=== PATIENT | male | born 1940 | race Caucasian/White ===

== ENCOUNTER 2024-02-26 04:44 | Emergency (ER) | payer MEDICARE ==
[2024-02-26 04:51] LABS: BASOPHILS ABSOLUTE AUTO 0.06 K/uL (0.00-0.10); BASOPHILS PERCENT AUTO 0.4 % (0.1-1.3); EOSINOPHILS ABSOLUTE AUTO 0.07 K/uL (0.00-0.40); EOSINOPHILS PERCENT AUTO 0.4 % (0.0-5.4); HEMATOCRIT 41.9 % (38.4-49.7); HEMOGLOBIN 14.7 g/dL (12.9-16.9); IMMATURE GRAN ABSOLUTE AUTO 0.04 K/uL (0.00-0.23); IMMATURE GRAN PERCENT AUTO 0.2 % (0.0-0.7); LYMPHOCYTES ABSOLUTE AUTO 1.37 K/uL (0.8-3.3); LYMPHOCYTES PERCENT AUTO 8.4 % (11.4-47.7); MEAN CORPUSCULAR HEMOGLOBIN 33.4 pg (31.6-35.5); MEAN CORPUSCULAR HGB CONC 35.1 g/dL (31.6-35.5); MEAN CORPUSCULAR VOLUME 95.2 fL (81.4-99.0); MONOCYTES ABSOLUTE AUTO 1.12 K/uL (0.20-0.90); MONOCYTES PERCENT AUTO 6.9 % (3.3-12.6); NEUTROPHILS ABSOLUTE AUTO 13.67 K/uL (1.0-7.6); NEUTROPHILS PERCENT AUTO 83.7 % (40.0-78.1); PLATELET COUNT,PLT 251 K/uL (130-375); WHITE BLOOD CELL COUNT,WBC 16.3 K/uL (3.2-11.0)
[2024-02-26 05:07] LABS: BLOOD UREA NITROGEN,BUN 20 mg/dL (7-18); CALCIUM 9.4 mg/dL (8.5-10.1); CARBON DIOXIDE,CO2 20 mmol/L (21-32); CHLORIDE,CL 103 mmol/L (100-108); CREATININE 1.2 mg/dL (0.8-1.3); EST CRCL DRUG DOSING (CG) 44.33 mL/min; ESTIMATED GFR 60 mL/min (>60); GLUCOSE RANDOM 191 mg/dL (74-106); SODIUM,NA 138 mmol/L (140-148); TROPONIN I HIGH SENSITIVITY < 4.0 pg/mL (<=60.3)
[2024-02-26] MEDS: Alum Hydrox/Mag Hydrox/Simeth 15 ML, Lidocaine 2% 15 ML PO ONE (05:09)
[2024-02-26] MEDS ORDERED: Naloxone 0.4 MG/ML SDV IVPUSH PRN ×2 (05:19→07:52)
[2024-02-26] MEDS: Morphine 4 MG/ML Syringe IVPUSH ONE (05:22)
[2024-02-26] MEDS: Sodium Chloride 0.9% 10 ML Syringe FLUSH ONE (05:31)
[2024-02-26] MEDS: Ondansetron 4 MG/2 ML SDV IVPUSH ONE (05:31)
[2024-02-26 05:41] LABS: A/G RATIO 0.7 (1.2-2.2); ALBUMIN 3.4 g/dL (3.4-5.0); BILIRUBIN DIRECT 1.23 mg/dL (0.0-0.2); BILIRUBIN INDIRECT 0.47; BILIRUBIN TOTAL 1.7 mg/dL (0.2-1.0); PROTEIN TOTAL,TP 8.1 g/dL (6.4-8.2)
[2024-02-26] MEDS: Sodium Chloride 0.9% 1,000 ML IV SCH ×3 (05:55→08:03)
[2024-02-26] MEDS: Sodium Chloride 0.9% 80 ML IV SCH (06:13)
[2024-02-26] MEDS: Iopamidol 612 MG/ML 100 ML Bottle IV SCH (06:13)
[2024-02-26] MEDS: Prochlorperazine 10 MG/2 ML SDV IVPUSH ONE (06:19)
[2024-02-26] MEDS: Pantoprazole 40 MG Vial IVPUSH ONE (06:19)
[2024-02-26] MEDS: HYDROmorphone 0.5 MG/0.5 ML Syringe IVPUSH ONE ×2 (07:13→08:00)
[2024-02-26] MEDS: Piperacillin/Tazobactam 4.5 GM in Sodium Chloride 0.9% 100 ML IV ONE (07:48)
[2024-02-26 09:51] VITALS: BP 159/70; PULSE 108
== END 2024-02-26 10:37 | disposition other institution (70) ==
LOC: JP.ED 04:44
DX: K85.90 Acute pancreatitis without necrosis or infection, unspecified (principal); K81.9 Cholecystitis, unspecified; I10 Essential (primary) hypertension; Z90.49 Acquired absence of other specified parts of digestive tract; Z88.8 Allergy status to other drugs, medicaments and biological substances; Z79.899 Other long term (current) drug therapy
CPT/HCPCS: 36415; 71275; 74177; 80048; 80076; 83605; 83690; 83880; 84484; 85025; 85379; 86140; 93005; 93010; 96361; 96365; 96375; 96376; 99285; A9270; C9113; J0780; J1170; J2270; J2405; J2543; J3490; J7030; Q9967

== ENCOUNTER 2024-03-28 16:54 | Emergency (ER) | payer MEDICARE ==
[2024-03-28] MEDS: Piperacillin/Tazobactam 2.25 GM in Sodium Chloride 0.9% 50 ML IV ONE (19:10)
[2024-03-28] MEDS: Sodium Chloride 0.9% 1,000 ML IV SCH (19:12)
[2024-03-28] MEDS: Acetaminophen 325 MG Tab PO ONE (20:31)
[2024-03-28 20:50] VITALS: BP 139/74; PULSE 137
== END 2024-03-28 22:38 | disposition other institution (70) ==
LOC: JP.ED 16:54
DX: K85.90 Acute pancreatitis without necrosis or infection, unspecified (principal); R10.13 Epigastric pain; I10 Essential (primary) hypertension; Z88.8 Allergy status to other drugs, medicaments and biological substances; Z79.899 Other long term (current) drug therapy; Z90.49 Acquired absence of other specified parts of digestive tract; Z98.890 Other specified postprocedural states
CPT/HCPCS: 74177; 96361; 96365; 99284; 99284-25; A9270-GY; J2543; J3490; J7030; Q9967

== ENCOUNTER 2024-04-02 16:10 | Emergency (ER) | payer MEDICARE ==
[2024-04-02 18:30] LABS: BASOPHILS ABSOLUTE AUTO 0.03 K/uL (0.00-0.10); BASOPHILS PERCENT AUTO 0.2 % (0.1-1.3); EOSINOPHILS ABSOLUTE AUTO 0.08 K/uL (0.00-0.40); EOSINOPHILS PERCENT AUTO 0.6 % (0.0-5.4); HEMATOCRIT 31.7 % (38.4-49.7); IMMATURE GRAN ABSOLUTE AUTO 0.05 K/uL (0.00-0.23); IMMATURE GRAN PERCENT AUTO 0.4 % (0.0-0.7); LYMPHOCYTES ABSOLUTE AUTO 0.87 K/uL (0.8-3.3); LYMPHOCYTES PERCENT AUTO 6.9 % (11.4-47.7); MEAN CORPUSCULAR HGB CONC 34.7 g/dL (31.6-35.5); MEAN CORPUSCULAR VOLUME 95.2 fL (81.4-99.0); MONOCYTES PERCENT AUTO 8.7 % (3.3-12.6); NEUTROPHILS ABSOLUTE AUTO 10.52 K/uL (1.0-7.6); NEUTROPHILS PERCENT AUTO 83.2 % (40.0-78.1); PLATELET COUNT,PLT 252 K/uL (130-375); RED BLOOD CELL COUNT 3.33 M/uL (4.14-5.76); WHITE BLOOD CELL COUNT,WBC 12.7 K/uL (3.2-11.0)
[2024-04-02 18:50] LABS: A/G RATIO 0.5 (1.2-2.2); ALANINE AMINOTRANSFERASE,ALT 42 U/L (12-78); ALKALINE PHOSPHATASE 689 U/L (46-116); ANION GAP 15.6 mmol/L (5.0-14.0); ASPARTATE AMNIOTRANSFERASE,AST 25 U/L (15-37); BILIRUBIN TOTAL 0.8 mg/dL (0.2-1.0); BLOOD UREA NITROGEN,BUN 23 mg/dL (7-18); CARBON DIOXIDE,CO2 22 mmol/L (21-32); CHLORIDE,CL 105 mmol/L (100-108); CREATININE 1.1 mg/dL (0.8-1.3); EST CRCL DRUG DOSING (CG) 48.36 mL/min; ESTIMATED GFR 66 mL/min (>60); GLUCOSE RANDOM 143 mg/dL (74-106); POTASSIUM,K 3.6 mmol/L (3.6-5.2); PROTEIN TOTAL,TP 6.3 g/dL (6.4-8.2); SODIUM,NA 139 mmol/L (140-148)
[2024-04-02] MEDS: HYDROmorphone 1 MG/ML Syringe IVPUSH ONE ×2 (18:53→20:39)
[2024-04-02] MEDS: Sodium Chloride 0.9% 1,000 ML IV SCH (18:53)
[2024-04-02] MEDS: Iopamidol 612 MG/ML 100 ML Bottle IV SCH (19:18)
[2024-04-02] MEDS: Sodium Chloride 0.9% 100 ML IV SCH (19:18)
[2024-04-02] MEDS: Sodium Chloride 0.9% 10 ML Syringe FLUSH PRN (19:18)
[2024-04-02 20:21] VITALS: BP 123/62; PULSE 101
== END 2024-04-02 21:51 | disposition home or self-care (01) ==
LOC: JP.ED 16:10
DX: R10.13 Epigastric pain (principal); R10.10 Upper abdominal pain, unspecified; I10 Essential (primary) hypertension; Z88.8 Allergy status to other drugs, medicaments and biological substances; Z79.899 Other long term (current) drug therapy; Z79.01 Long term (current) use of anticoagulants; C61 Malignant neoplasm of prostate
CPT/HCPCS: 36415; 74177; 80053; 83690; 85025; 96361; 96374; 96376; 99284; J1170; J3490; J7030; Q9967

== ENCOUNTER 2024-07-29 10:13 | Emergency (ER) | payer MEDICARE ==
[2024-07-29 11:13] LABS: BASOPHILS ABSOLUTE AUTO 0.06 K/uL (0.00-0.10); BASOPHILS PERCENT AUTO 0.8 % (0.1-1.3); EOSINOPHILS ABSOLUTE AUTO 0.14 K/uL (0.00-0.40); EOSINOPHILS PERCENT AUTO 1.8 % (0.0-5.4); HEMATOCRIT 35.1 % (38.4-49.7); IMMATURE GRAN ABSOLUTE AUTO 0.05 K/uL (0.00-0.23); IMMATURE GRAN PERCENT AUTO 0.6 % (0.0-0.7); LYMPHOCYTES ABSOLUTE AUTO 0.94 K/uL (0.8-3.3); LYMPHOCYTES PERCENT AUTO 11.9 % (11.4-47.7); MEAN CORPUSCULAR HEMOGLOBIN 31.7 pg (31.6-35.5); MEAN CORPUSCULAR HGB CONC 34.2 g/dL (31.6-35.5); MEAN CORPUSCULAR VOLUME 92.9 fL (81.4-99.0); MONOCYTES ABSOLUTE AUTO 0.55 K/uL (0.20-0.90); NEUTROPHILS ABSOLUTE AUTO 6.14 K/uL (1.0-7.6); NEUTROPHILS PERCENT AUTO 77.9 % (40.0-78.1); PLATELET COUNT,PLT 278 K/uL (130-375); RED BLOOD CELL COUNT 3.78 M/uL (4.14-5.76); WHITE BLOOD CELL COUNT,WBC 7.9 K/uL (3.2-11.0)
[2024-07-29 11:31] LABS: INR 1.2; PROTHROMBIN TIME 12.7 sec (9.2-10.6)
[2024-07-29] MEDS: Lidocaine 1% 10 ML MDV INJECT ONE (11:37)
[2024-07-29] MEDS: Bacitracin Oint 1 GM U/D Packet TOP ONE (12:19)
[2024-07-29 12:26] VITALS: BP 142/62; PULSE 97
== END 2024-07-29 12:44 | disposition home or self-care (01) ==
LOC: JP.ED 10:13
DX: S01.81XA Laceration without foreign body of other part of head, initial encounter (principal); S51.011A Laceration without foreign body of right elbow, initial encounter; I10 Essential (primary) hypertension; Z90.49 Acquired absence of other specified parts of digestive tract; Z79.899 Other long term (current) drug therapy; Z88.1 Allergy status to other antibiotic agents; Z88.8 Allergy status to other drugs, medicaments and biological substances; W19.XXXA Unspecified fall, initial encounter
CPT/HCPCS: 12013; 36415; 70450; 70450-26; 85025; 85610; 99283

== ENCOUNTER 2024-12-12 15:42 | Emergency (ER) | payer MEDICARE ==
[2024-12-12 15:57] VITALS: BP 129/64; PULSE 90
[2024-12-12 16:42] LABS: BASOPHILS ABSOLUTE AUTO 0.04 K/uL (0.00-0.10); BASOPHILS PERCENT AUTO 0.3 % (0.1-1.3); EOSINOPHILS ABSOLUTE AUTO 0.07 K/uL (0.00-0.40); EOSINOPHILS PERCENT AUTO 0.6 % (0.0-5.4); HEMATOCRIT 31.5 % (38.4-49.7); HEMOGLOBIN 10.4 g/dL (12.9-16.9); IMMATURE GRAN ABSOLUTE AUTO 0.05 K/uL (0.00-0.23); IMMATURE GRAN PERCENT AUTO 0.4 % (0.0-0.7); LYMPHOCYTES ABSOLUTE AUTO 0.98 K/uL (0.8-3.3); LYMPHOCYTES PERCENT AUTO 8.4 % (11.4-47.7); MEAN CORPUSCULAR HEMOGLOBIN 33.4 pg (31.6-35.5); MEAN CORPUSCULAR VOLUME 101.3 fL (81.4-99.0); MONOCYTES ABSOLUTE AUTO 0.51 K/uL (0.20-0.90); MONOCYTES PERCENT AUTO 4.4 % (3.3-12.6); NEUTROPHILS ABSOLUTE AUTO 9.97 K/uL (1.0-7.6); NEUTROPHILS PERCENT AUTO 85.9 % (40.0-78.1); PLATELET COUNT,PLT 200 K/uL (130-375); RED BLOOD CELL COUNT 3.11 M/uL (4.14-5.76); WHITE BLOOD CELL COUNT,WBC 11.6 K/uL (3.2-11.0)
[2024-12-12 16:59] LABS: ANION GAP 10.8 mmol/L (5.0-14.0); CALCIUM 8.4 mg/dL (8.5-10.1); CREATININE 0.9 mg/dL (0.8-1.3); EST CRCL DRUG DOSING (CG) 50.05 mL/min; POTASSIUM,K 3.6 mmol/L (3.6-5.2)
[2024-12-12 17:31] LABS: IRON,FE 19 ug/dL (65-175); PERCENT FE SATURATION 13 % (20-55); TOTAL IRON BINDING CAPACITY 144 ug/dl (250-450)
[2024-12-12] MEDS: Apixaban 5 MG Tab PO ONE (17:46)
== END 2024-12-12 18:00 | disposition home or self-care (01) ==
LOC: JP.ED 15:42
DX: I82.492 Acute embolism and thrombosis of other specified deep vein of left lower extremity (principal); D50.9 Iron deficiency anemia, unspecified; I10 Essential (primary) hypertension; Z88.8 Allergy status to other drugs, medicaments and biological substances; Z79.899 Other long term (current) drug therapy; Z79.01 Long term (current) use of anticoagulants
CPT/HCPCS: 36415; 80048; 82272; 82728; 83550; 85025; 99283; 99284; A9270

== ENCOUNTER 2025-01-23 14:47 | Emergency (ER) | payer MEDICARE ==
[2025-01-23 17:18] VITALS: BP 135/68; PULSE 88
[2025-01-23] MEDS: Lidocaine 1% with EPINEPHrine 1:100,000 20 ML MDV INJECT ONE (17:38)
[2025-01-23] MEDS ORDERED: Bacitracin Oint 1 GM U/D Packet ONE (18:54)
[2025-01-23] MEDS: Bacitracin Oint 1 GM U/D Packet TOP ONE (18:56)
== END 2025-01-23 19:29 | disposition home or self-care (01) ==
LOC: JP.ED 14:47
DX: S01.01XA Laceration without foreign body of scalp, initial encounter (principal); I10 Essential (primary) hypertension; Z90.49 Acquired absence of other specified parts of digestive tract; Z79.899 Other long term (current) drug therapy; Z88.8 Allergy status to other drugs, medicaments and biological substances; W01.0XXA Fall on same level from slipping, tripping and stumbling without subsequent striking against object, initial encounter
CPT/HCPCS: 12011; 70450; 72125; 99283; J2004; 99282

== ENCOUNTER 2025-03-14 21:39 | Emergency (ER) | payer MEDICARE ==
[2025-03-14 22:12] VITALS: BP 125/68; PULSE 109
== END 2025-03-14 23:34 | disposition home or self-care (01) ==
LOC: JP.ED 21:39
DX: N40.1 Benign prostatic hyperplasia with lower urinary tract symptoms (principal); R33.8 Other retention of urine; I10 Essential (primary) hypertension; Z88.8 Allergy status to other drugs, medicaments and biological substances; Z79.899 Other long term (current) drug therapy; Z79.01 Long term (current) use of anticoagulants; Z90.49 Acquired absence of other specified parts of digestive tract
CPT/HCPCS: 51702; 99283